=== PATIENT | male | born 1980 | race Caucasian/White ===

== ENCOUNTER 2020-07-04 20:10 | Emergency (ER) | payer OTHER ==
[2020-07-04] MEDS ORDERED: TETRACAINE HCL 0.5% OPH SOLN 4 ML OS ONE (22:38)
--- NOTE | 2020-07-04 22:44 | ER Document Report ---
ED General - General Chief Complaint: Foreign Body in Eye Stated Complaint: FOREIGN OBJECT IN LEFT EYE Primary Care Provider: CHUCKIE DUTTON PA-C [Primary Care Provider] - Follow up as needed SARAH MASON DO [ACTIVE STAFF] - Follow up in 3-5 days Notes: 39-year-old male with no significant ophthalmologic history presents with irritation to left eye after getting dust from particle board in his eye yesterday evening. Patient endorses foreign body sensation in left eye and redness to the eye. Patient denies any other trauma to the eye, any interventions prior to arrival, does feel like left eye vision is blurry, denies any right eye symptoms. - Related Data Allergies/Adverse Reactions: propofol Allergy (Severe, Verified 07/04/20 21:16) Confusion, Combative Home Medications: trazadone, monetlukast, fexofenadine, levoalbertol, symbicort Past Medical History - General Information source: Patient - Social History Smoking Status: Former Smoker Chew tobacco use (# tins/day): No Frequency of alcohol use: Social Drug Abuse: None Family History: Reviewed & Not Pertinent Patient has homicidal ideation: No Pulmonary Medical History: Reports: Hx Asthma, Hx COPD GI Medical History: Reports: Hx Gastroesophageal Reflux Disease Past Surgical History: Reports: Hx Abdominal Surgery, Hx Orthopedic Surgery - lt wrist, rt hip arthro Review of Systems - Review of Systems Notes: REVIEW OF SYSTEMS: CONSTITUTIONAL : Denies fever, chills, or sweats. EENT: Denies recent cold/sinus symptoms, denies throat pain CARDIOVASCULAR: Denies chest pain, JULIANE RESPIRATORY: Denies cough, denies shortness of breath. GASTROINTESTINAL: Denies abdominal pain, nausea/vomiting. GENITOURINARY: Denies difficulty urinating, painful urination. MUSCULOSKELETAL: Denies neck pain, back pain. SKIN: Denies rash or skin lesions. HEMATOLOGIC : Denies easy bruising or bleeding. LYMPHATIC: Denies swollen, enlarged glands. NEUROLOGICAL: Denies headache, denies change in gait. Physical Exam - Vital signs Vitals: Temp Pulse Resp BP Pulse Ox 98.4 F 79 20 121/66 100 07/04/20 20:29 07/04/20 20:29 07/04/20 20:29 07/04/20 20:29 07/04/20 20:29 - Notes Notes: PHYSICAL EXAMINATION: GENERAL: Well-appearing, well-nourished and in no acute distress. HEAD: Atraumatic, normocephalic. EYES: Pupils equal round and appropriate constriction, sclera anicteric, right eye normal inspection, left eye mild diffuse erythema with tenderness and mild upper and lower lid edema without erythema or discharge, extraocular movements intact, no areas of abnormal uptake with fluorescein staining in either eye ENT: nares patent, moist mucous membranes. NECK: Normal range of motion, supple without lymphadenopathy LUNGS: Normal respiratory rate and effort, speaking in full sentences HEART: Regular rate, no JVD, no lower extremity edema EXTREMITIES: Normal range of motion, no pitting or edema. No cyanosis. NEUROLOGICAL: Awake, alert, conversing appropriately, moves all extremities spontaneously. PSYCH: Normal mood, normal affect. SKIN: Warm, Dry, normal turgor, no rashes or lesions noted. - HEENT Visual acuity- Right eye: 20/15 Visual acuity- Left eye: 20/25 Visual acuity- Both eyes: 20/15 Corrective lenses worn: No Course - Re-evaluation Re-evalutation: 07/04/20 22:42 Left eye exposure to particle board loss, rule out retained foreign body, rule out corneal abrasion/ulcer as this occurred greater than 1 day ago, mild conjunctivitis in left eye this on exam consistent with patient's history but no signs of bacterial infection requiring antibiotics at this time. Will flush eye with 250 mls of normal saline, stain with fluorescein, flip eyelids, and assess visual acuity. Likely DC with ophthalmology follow-up and lubricating eyedrops. 07/04/20 23:14 No foreign bodies on eyelid eversion, no corneal abrasion or ulceration with fluorescein stain, patient feels significantly better after normal saline flush and tetracaine. Mildly decreased visual acuity in left eye without any etiology concerning for need for emergent ophthalmologic consultation, patient ready for discharge with outpatient ophthalmologic follow-up. Will give lubricating eyedrops, no signs of iritia, uveitis, bacterial conjunctivitis, endophthalmitis, or intravitreous foreign body, gave patient return to ED precautions which she demonstrated understanding of. - Vital Signs Vital signs: Temp Pulse Resp BP Pulse Ox 97.6 F 71 17 121/61 97 07/04/20 23:35 07/04/20 23:35 07/04/20 23:35 07/04/20 23:35 07/04/20 23:35 - Laboratory Results Critical Laboratory Results Reviewed: No Critical Results - Radiology Results Critical Radiology Results Reviewed: No Critical Results Discharge - Discharge Clinical Impression: Conjunctivitis Qualifiers: Conjunctivitis type: acute Acute conjunctivitis type: atopic Laterality: left Qualified Code(s): H10.12 - Acute atopic conjunctivitis, left eye Disposition: HOME, SELF-CARE Additional Instructions: Conjunctival Foreign Body There was a foreign body in your eye. It's now out of the eye, but your eye may be irritated until completely healed. No treatment is required after removal of the typical foreign body. However, if the particle was deeply embedded, or if infection has already set in, antibiotics may be necessary. Call the doctor or return for re-evaluation immediately if the eye becomes more painful, vision decreases, or if there is discharge from the eye. Prescriptions: Carboxymethylcellulose Sodium [Artificial Tears] 2 drop OS QID 4 Days #15 ml Referrals: CHUCKIE DUTTON PA-C [Primary Care Provider] - Follow up as needed SARAH MASON DO [ACTIVE STAFF] - Follow up in 3-5 days
[2020-07-04 23:36] VITALS: BP 121/61
== END 2020-07-04 23:35 | disposition home or self-care (01) ==
LOC: ER 20:10
DX: H10.12 Acute atopic conjunctivitis, left eye (principal); T15.92XA Foreign body on external eye, part unspecified, left eye, initial encounter; H57.12 Ocular pain, left eye; Z88.8 Allergy status to other drugs, medicaments and biological substances; Z79.899 Other long term (current) drug therapy; Z87.891 Personal history of nicotine dependence; J44.9 Chronic obstructive pulmonary disease, unspecified
CPT/HCPCS: 99283; J3490